=== PATIENT | male | born 1975 | race African-American/Black ===

== ENCOUNTER 2016-12-07 05:51 | Day surgery (SDC) | payer BC ==
[2016-12-04 15:18] VITALS: BMI 33.7
[2016-12-07] VITALS (12 sets, daily range): BP systolic 112–135; BP diastolic 68–84; PULSE 76–84; RESP 18–23; Ht 170.2 cm; Wt 96.1 kg
[~2016-12-07] VITALS: Ht 170.2 cm; Wt 96.1 kg
[~2016-12-07 05:51] MED LIST: CEFAZOLIN 2 GM/50 ML (PMX) 50 ML IVPB ONE; SOD CHLORIDE 0.9% 1,000 ML IV ONE
[2016-12-07] MEDS ORDERED: GUAI-637 PO (06:56)
[2016-12-07] MEDS ORDERED: ALBU18HF INHALATION (06:56)
[2016-12-07] MEDS ORDERED: ALBUTEROL/IPRATROPIUM (NEB) 3 ML AMP HHN STA (07:28)
[2016-12-07] MEDS ORDERED: BUPIVACAINE 0.25% (MPF) 30 ML INJ ONE (07:30)
[2016-12-07] MEDS ORDERED: ALBUTEROL 0.083% (NEB) 2.5 MG/3 ML AMP ONE (07:32)
[2016-12-07] MEDS ORDERED: FENTAnyl 50 MCG/ML VIAL ONE (08:11)
[2016-12-07] MEDS ORDERED: PROVENTIL HFA 6.7GM INHALER ONE (08:11)
[2016-12-07] MEDS ORDERED: DEXAMETHASONE 4 MG/ML 1 ML INJ ONE (08:11)
[2016-12-07] MEDS ORDERED: SUCCINYLCHOLINE CHLORIDE 100 MG/5 ML SYG IV ONE (08:30)
[2016-12-07] MEDS ORDERED: SUGAMMADEX SODIUM 200 MG/2 ML VIAL IV ONE (08:30)
[2016-12-07] MEDS ORDERED: ROCURONIUM 50 MG INJ ONE (08:30)
[2016-12-07] MEDS ORDERED: CEFAZOLIN 1 GM INJ ONE (08:30)
[2016-12-07] MEDS ORDERED: LIDOCAINE 2% (SDV) 5 ML INJ ONE (08:30)
[2016-12-07] MEDS ORDERED: PROPOFOL 20 ML ONE (08:30)
[2016-12-07] MEDS ORDERED: HYDROmorphONE (0.2 MG/ML) 10ML SYG IV PRN ×3 (09:00)
[2016-12-07] MEDS ORDERED: OXYCODONE/ACETAMINOPHEN (5/325) TAB PO PRN (09:00)
[2016-12-07] MEDS ORDERED: DIPHENHYDRAMINE 50 MG INJ IV PRN (09:00)
[2016-12-07] MEDS ORDERED: METOCLOPRAMIDE 10 MG INJ IV PRN (09:00)
[2016-12-07] MEDS ORDERED: FENTAnyl 50 MCG/ML VIAL IV PRN ×2 (09:00)
[2016-12-07] MEDS ORDERED: MEPERIDINE 25 MG INJ IV PRN (09:00)
[2016-12-07] MEDS ORDERED: HYDROCODONE/APAP (5/325) TAB PO ONE (09:00)
[2016-12-07] MEDS ORDERED: ONDANSETRON 4 MG INJ IV PRN (09:00)
[2016-12-07] MEDS ORDERED: ALBUTEROL 0.083% (NEB) 2.5 MG/3 ML AMP HHN PRN (09:00)
[2016-12-07] MEDS ORDERED: RACEPINEPHRINE 2.25%(NEB) 0.5 ML AMP HHN ONE (09:00)
--- NOTE | 2016-12-07 09:01 | OPR ---
Date/Time of Note Date/Time of Note DATE: 12/07/16 TIME: 08:58 Operative Report Procedure Date: Dec 07, 2016 Preoperative Diagnosis symptomatic gallstones Postoperative Diagnosis same Operation Performed 1.laparoscopic cholecystectomy 2. therapeutic injection of subcutaneous marcaine cpt code [id number] Surgeon: Vidal UGALDE Anesthesia Type: general Estimated Blood Loss: minimal Specimens gallbladder Grafts/Implants: none Complications: no Indications This is a 41-year-old male with symptomatic gallstones. She required surgical excision of his gallbladder. Risks alternatives benefits and personnel were discussed the patient. Patient expresses understanding consents to the operation. Procedure Description Patient is taken to the OR and prepped and draped in usual sterile fashion. Surgical timeout is performed. IV antibiotics were given. Infraumbilical transverse incision is made with a 15 blade. Dissection cautery was carried down to the fascia. The fascia was grasped with Kizzy's and divided with curved Caro scissors. 0 Vicryl U stitch was placed as the fascia. Balloon Neal trocar is introduced pneumoperitoneum is established. Midepigastric 12 mm optical trocar right upper quadrant right upper flank 5 mm optical trocar was placed under direct visualization. Upon initial inspection there is some fat adhesions to the gallbladder. This was taken down bluntly. Gallbladder is grasped by the fundus and retracted in a outward and lateral direction. The cystic duct is identified the critical view was established the cystic duct is divided with a 35 mm echelon vascular stapler due to the thickened tissues. The staple line was reinforced with clips. Cystic artery is clipped with 3 clips proximal and 1 clip distal and divided with scissors. The gallbladder is taken of the gallbladder bed. There is good hemostasis. The gallbladder is retrieved using an Endo Catch bag. Ports removed under direct visualization. 0 Vicryl U stitch was tied down. Skin is closed and skin aysha. Local anesthesia injected to all sites. Dry dressings were applied. Vidal UGALDE Dec 07, 2016 09:01
== END 2016-12-07 10:50 | disposition home or self-care (01) ==
LOC: SDS 05:51
PROVIDERS: ATTEND Surgery
DX: K80.10 Calculus of gallbladder with chronic cholecystitis without obstruction (principal)
CPT/HCPCS: 47562; 94664; J0690; J1100; J3010; J7999